=== PATIENT | female | born 1980 | race Hispanic/Latino ===

== ENCOUNTER 2018-06-06 17:47 | Outpatient (CLI) | payer OTHER ==
--- NOTE | 2018-06-06 18:47 | RAD ---
TWO VIEW CHEST: 06/06/18 HISTORY: Shortness of breath. Lung canales are clear. Heart and mediastinum unremarkable. Osseous structures are unremarkable. IMPRESSION: Unremarkable chest. POS: [facility]
[2018-06-06 19:13] LABS: BHCG - Serum Negative (NEGATIVE); Pregs Control Background? CLEAR/WHITE (CLR/WHITE); Pregs Control Bar Appear? YES (CONTROL BAR)
== END 2018-06-06 17:48 | disposition home or self-care (01) ==
LOC: SCSRAD 17:47
PROVIDERS: ATTEND Family Medicine
DX: R06.02 Shortness of breath (principal)
CPT/HCPCS: 71046; 84703

== ENCOUNTER 2018-09-12 10:45 | Day surgery (SDC) | payer OTHER ==
[2018-09-11 08:15] VITALS: BMI 40.2
--- NOTE | 2018-09-12 03:16 | HP ---
HISTORY OF PRESENT ILLNESS: This is a 38-year-old [place] female with difficulty swallowing for the last 3 weeks. Her symptoms were different about 3 weeks ago and it got_ better. Now, she is not having difficulty swallowing anymore. However, . She complains of heartburn, indigestion. She has nausea but no vomiting. The pain is burning in nature. The patient is undergoing EGD because of the abdominal pain, chronic reflux, and dysphagia. ALLERGIES: NONE. SOCIAL HISTORY: The patient does not smoke or drink alcohol. MEDICAL ILLNESSES: 1. Hypertension. 2. Obesity. 3. Migraine. 4. Anxiety. 5. Fatty liver. 6. Gallstone. 7. Ovarian disease. 8. Depression. PHYSICAL EXAMINATION: GENERAL: The patient is obese. VITAL SIGNS: Pulse is 70 and blood pressure 176/70. HEENT: Conjunctivae clear. CARDIOVASCULAR: First and second heart sounds heard. LUNGS: Clear to auscultation. ABDOMEN: Soft. No organomegaly. No tenderness. No masses. ADMITTING DIAGNOSES: Abdominal pain, chronic acid reflux, recent dysphagia. PLAN: EGD. Job ID: [id number] [facility]
--- NOTE | 2018-09-12 16:48 | OP ---
DATE OF PROCEDURE: 09/12/2018 OPERATIVE PROCEDURES: 1. Esophagogastroduodenoscopy with biopsy. 2. Esophageal dilation with a 52-Norwegian Johnston dilator. PREOPERATIVE DIAGNOSES: Abdominal pain and dysphagia. POSTOPERATIVE DIAGNOSES: 1. Normal esophageal mucosa. 2. No esophageal stricture seen. 3. Mild mucosal hyperemia, gastric antrum. 4. Normal duodenum. DESCRIPTION OF PROCEDURE: The patient was placed on the left lateral position and was given sedation by Anesthesia Department. A [employer]ax videogastroscope under direct vision passed down the oropharynx across the GE junction into the stomach and subsequently into the descending duodenum. The vocal cords appeared very healthy. Although, the patient complained of dysphagia. With endoscopy, no esophageal narrowing seen. The mucosa appeared normal. The scope advanced to the stomach without resistance. Retroflexion failed to show any pathology in fundus and cardia. The gastric body, no pathology seen. The gastric antrum as well as the other pyloric channel showed mild hyperemia. The duodenal bulb and descending duodenum, no pathology. The scope was withdrawn back into the stomach. Biopsies obtained in the gastric antrum and gastric body. The stomach decompressed and the scope removed. Because of history of dysphagia, it was elected to do the empiric dilation with a 52-Norwegian Johnston dilator. This was accomplished without any resistance. DISCHARGE PLAN: This is a 38-year-old female with abdominal pain, chronic reflux, and also dysphagia. The EGD showed no esophageal narrowing. The stomach showed no pathology and also duodenum showed no pathology. The patient underwent EGD and biopsy and empiric dilation with a 52-Norwegian Johnston dilator. DISCHARGE RECOMMENDATION: 1. Resume medicines as before. 2. Await gastric biopsy. 3. To come back to clinic in 2 weeks. Job ID: [id number]
--- NOTE | 2018-09-12 20:30 | EKG ---
Test Reason : PREOP Blood Pressure : / mmHG Vent. Rate : 078 BPM Atrial Rate : 078 BPM P-R Int : 154 ms QRS Dur : 090 ms QT Int : 386 ms P-R-T Axes : 055 -13 020 degrees QTc Int : 440 ms Normal sinus rhythm Normal ECG When compared with ECG of 23-JUN-2016 18:15, Nonspecific T wave abnormality no longer evident in Anterior leads Confirmed by IKE IVERSON, . S. (4) on 09/12/2018 8:29:46 PM Referred By: JEFFERY Confirmed By:DR. Griffin RAMIRES MD
== END 2018-09-12 13:07 | disposition home or self-care (01) ==
LOC: SDC 10:45
PROVIDERS: ATTEND Internal Medicine Gastroenterology
PROC: 0D758DZ Dilation of Esophagus with Intraluminal Device, Via Natural or Artificial Opening Endoscopic (ICD-10-PCS; principal; 2018-09-12)
PROC: 0DB68ZX Excision of Stomach, Via Natural or Artificial Opening Endoscopic, Diagnostic (ICD-10-PCS; principal; 2018-09-12)
DX: R13.10 Dysphagia, unspecified (principal); K21.9 Gastro-esophageal reflux disease without esophagitis; R10.9 Unspecified abdominal pain; I10 Essential (primary) hypertension; F41.9 Anxiety disorder, unspecified; F32.9 Major depressive disorder, single episode, unspecified; G43.909 Migraine, unspecified, not intractable, without status migrainosus; K76.0 Fatty (change of) liver, not elsewhere classified; K80.20 Calculus of gallbladder without cholecystitis without obstruction; E66.9 Obesity, unspecified; Z68.41 Body mass index [BMI] 40.0-44.9, adult
CPT/HCPCS: 88305; 88312; 93005; 93010

== ENCOUNTER 2020-08-10 22:59 | Inpatient (IN) | payer MEDICAID, SELFPAY ==
[2020-08-11 10:03] LABS: SARS-CoV-2 NAA Rapid Test Not Detected (NotDetected)
[2020-08-11] MEDS ORDERED: Ketorolac Tromethamine 30 MG/ML VIAL ONE ×3 (13:12→13:55)
[2020-08-11] MEDS ORDERED: Bupivacaine 0.25% HCL 30 ML VIAL ONE (13:37)
[2020-08-11] MEDS ORDERED: Lidocaine 1% w/Epinephrine 1:100K 20 ML VIAL ONE (13:37)
[2020-08-11] MEDS ORDERED: Fentanyl 100 MCG/2 ML VIAL ONE ×2 (13:44→16:07)
[2020-08-11] MEDS ORDERED: Midazolam HCl 2 mg/2 ml Vial ONE (13:44)
[2020-08-11] MEDS ORDERED: PROPOFOL 200 MG/20 ML VIAL ONE (13:55)
[2020-08-11] MEDS ORDERED: Ondansetron PF 4 MG/2 ML Vial ONE (13:55)
[2020-08-11] MEDS ORDERED: Lidocaine 1% PF 5 ML VIAL ONE (13:55)
[2020-08-11] MEDS ORDERED: Dexamethasone 20 MG/5 ML VIAL ONE (13:55)
[2020-08-11] MEDS ORDERED: Rocuronium Bromide 10 MG/ML (10ML VIAL) ONE (13:55)
[2020-08-11] MEDS ORDERED: Glycopyrrolate 0.2 MG/ML 5 ML SYRINGE ONE (13:55)
[2020-08-11] MEDS ORDERED: Iothalamate Meglumine 60% 50 ML VIAL FS ONE (14:35)
[2020-08-11] MEDS ORDERED: Ondansetron HCl/PF 4 MG/2 ML Vial IVP PRN (15:50)
[2020-08-11] MEDS ORDERED: Promethazine HCl 25 MG/ML VIAL SLOW IVP PRN (15:50)
[2020-08-11] MEDS ORDERED: Promethazine HCl 25 MG/ML VIAL IM PRN ×2 (15:50→17:38)
[2020-08-11] MEDS ORDERED: Promethazine HCl 25 MG/ML VIAL ONE (16:22)
[2020-08-11] MEDS ORDERED: Mag-Al 1200 mg/1200 mg/30 ML UDCUP PO PRN (17:38)
[2020-08-11] MEDS ORDERED: hydrALAZINE 20 MG/ML VIAL SLOW IVP PRN (17:38)
[2020-08-11] MEDS ORDERED: Morphine 4 MG/ML VIAL SLOW IVP PRN ×2 (17:38→17:45)
[2020-08-11] MEDS ORDERED: Dextrose 50% Abboject 50 ML SYRINGE SLOW IVP PRN (17:38)
[2020-08-11] MEDS ORDERED: Acetaminophen 325 MG TAB PO PRN (17:38)
[2020-08-11] MEDS ORDERED: HYDROcodone/Acetaminophen 10/325 mg Tablet PO PRN (17:38)
[2020-08-11] MEDS ORDERED: Calcium Carbonate 500 MG ChewTAB PO PRN (17:38)
[2020-08-11] MEDS ORDERED: Dextrose 5% in Water 1,000 ML IV PRN (17:38)
[2020-08-11] MEDS ORDERED: Ondansetron PF 4 MG/2 ML Vial IVP PRN (17:38)
[2020-08-11 20:05] VITALS: BMI 39.1
[2020-08-11] MEDS: Ketorolac Tromethamine 30 MG/ML VIAL IVP SCH (20:20)
[2020-08-11] MEDS: D5 1/2 NS w/20 mEq KCL 1,000 ML IV SCH (20:23)
[2020-08-11] MEDS: Piperacillin/Tazobactam 3.375 GM in Sodium Chloride 0.9% 100 ML IVPB SCH (20:23)
[2020-08-11] MEDS: Famotidine/PF 20 mg/2ml Vial SLOW IVP SCH (20:55)
[2020-08-11] MEDS: Famotidine 20 MG TAB PO SCH (20:56)
[2020-08-12] MEDS: Piperacillin/Tazobactam 3.375 GM in Sodium Chloride 0.9% 100 ML IVPB SCH ×4 (00:18→17:38)
[2020-08-12] MEDS: Ketorolac Tromethamine 30 MG/ML VIAL IVP SCH ×4 (00:19→17:39)
[2020-08-12] MEDS: D5 1/2 NS w/20 mEq KCL 1,000 ML IV SCH ×3 (05:42→18:05)
[2020-08-12 06:24] LABS: #Lymphocytes 0.6 thou/uL (1.20-3.40); #Monocytes 0.3 thou/uL (0.11-0.59); #Neutrophils 5.8 thou/uL (1.40-6.50); %Basophils 0.2 % (0.0-1.0); %Eosinophils 0.1 % (0.0-10.0); %Lymphocytes 9.5 % (21.0-51.0); %Monocytes 4.4 % (0.0-10.0); %Neutrophils 85.8 % (42.0-75.0); Hemoglobin 13.1 g/dL (12.0-16.0); Mean Corpuscular HGB CONC 32.5 g/dL (32.0-36.0); Mean Corpuscular Hemoglobin 31.4 pg (27.0-31.0); Mean Corpuscular Volume 96.7 fL (78.0-98.0); Mean Platelet Volume 8.4 fL (7.4-10.4); Platelet Count 271 thou/uL (130-400); RBC Distribution Width 12.1 % (11.5-14.5); Red Blood Cell (RBC) Count 4.17 mill/uL (4.20-5.40); White Blood Cell (WBC) Count 6.7 thou/uL (4.8-10.8)
[2020-08-12 06:44] LABS: ALT (SGPT) 234 U/L (8-55); AST (SGOT) 226 U/L (5-34); Alkaline Phosphatase 104 U/L (40-110); Anion Gap 12 mmol/L (10-20); BUN (Urea Nitrogen) 9 mg/dL (7.0-18.7); Bilirubin, Total 0.9 mg/dL (0.2-1.2); Calc. Creatinine Clearance 153 mL/min (70-130); Carbon Dioxide 23 mmol/L (22-29); Chloride 105 mmol/L (98-107); Globulin 4.2 g/dL (2.4-3.5); Glucose 126 mg/dL (70-105); Lipase 21 U/L (8-78); Protein, Total 8.2 g/dL (6.0-8.3); Sodium 136 mmol/L (136-145)
[2020-08-12] MEDS: Famotidine 20 MG TAB PO SCH (08:06)
[2020-08-12] MEDS: Famotidine/PF 20 mg/2ml Vial SLOW IVP SCH (08:50)
[2020-08-12] MEDS ORDERED: Piperacillin/Tazobactam 3.375 GM VIAL ONE (10:20)
[2020-08-12] MEDS ORDERED: Sodium Chloride 0.9% 100 ML ONE (10:34)
[2020-08-12] MEDS ORDERED: Indomethacin 50 MG SUPP ONE (12:22)
[2020-08-12] MEDS ORDERED: Iothalamate Meglumine 60% 50 ML VIAL FS ONE (12:23)
[2020-08-12] MEDS ORDERED: Midazolam HCl 2 mg/2 ml Vial ONE (12:38)
[2020-08-12] MEDS ORDERED: Fentanyl 100 MCG/2 ML VIAL ONE ×2 (12:38→14:15)
[2020-08-12] MEDS ORDERED: Ondansetron PF 4 MG/2 ML Vial ONE (12:41)
[2020-08-12] MEDS ORDERED: PROPOFOL 200 MG/20 ML VIAL ONE (12:41)
[2020-08-12] MEDS ORDERED: Rocuronium Bromide 10 MG/ML (10ML VIAL) ONE (12:41)
[2020-08-12] MEDS ORDERED: Dexamethasone 20 MG/5 ML VIAL ONE (12:41)
[2020-08-12] MEDS ORDERED: Succinylcholine 200 MG/10 ml SYRINGE FS ONE (12:41)
[2020-08-12] MEDS ORDERED: Lidocaine 1% PF 5 ML VIAL ONE (12:41)
[2020-08-12] MEDS ORDERED: Morphine Sulfate 2 MG/ML SYRINGE SLOW IVP PRN (13:04)
[2020-08-12] MEDS ORDERED: Meperidine HCl/PF 25 MG/ML VIAL SLOW IVP PRN (13:04)
[2020-08-12] MEDS ORDERED: Promethazine HCl 25 MG/ML VIAL SLOW IVP PRN (13:04)
[2020-08-12] MEDS ORDERED: Promethazine HCl 25 MG/ML VIAL IM PRN (13:04)
[2020-08-12] MEDS ORDERED: Ondansetron HCl/PF 4 MG/2 ML Vial IVP PRN (13:04)
[2020-08-12] MEDS ORDERED: D5 1/2 NS w/20 mEq KCL 1,000 ML ONE (13:32)
[2020-08-12 16:18] VITALS: TEMP 97.7
[2020-08-12 19:29] VITALS: BP 148/100
== END 2020-08-12 20:21 | disposition home or self-care (01) | DRG 419 ==
LOC: ERS 22:59 → ERHOLD 08-11 02:35 → SURG A 08-11 13:42 → OBSVTOIN 08-11 17:38 → T4-A 08-11 19:57
PROVIDERS: ADMIT Specialist; ATTEND Specialist
PROC: 0FT44ZZ Resection of Gallbladder, Percutaneous Endoscopic Approach (ICD-10-PCS; principal; 2020-08-11)
PROC: BF131ZZ Fluoroscopy of Gallbladder and Bile Ducts using Low Osmolar Contrast (ICD-10-PCS; 2020-08-11)
PROC: 0FC98ZZ Extirpation of Matter from Common Bile Duct, Via Natural or Artificial Opening Endoscopic (ICD-10-PCS; 2020-08-12)
DX: K80.62 Calculus of gallbladder and bile duct with acute cholecystitis without obstruction (principal); Z20.822 Contact with and (suspected) exposure to COVID-19; F41.9 Anxiety disorder, unspecified; G43.909 Migraine, unspecified, not intractable, without status migrainosus; I10 Essential (primary) hypertension; E66.9 Obesity, unspecified; Z68.39 Body mass index [BMI] 39.0-39.9, adult; Z79.899 Other long term (current) drug therapy
CPT/HCPCS: 0240U; 36415; 47532; 74330; 76705; 80053; 83690; 85025; 88304; G0378; J0690; J1100; J1610; J1885; J2250; J2270; J2405; J2543; J2550; J2704; J3010; J3480; J3490; Q9961; S0020; S0028

== ENCOUNTER 2023-10-23 13:02 | Emergency (ER) | payer SELFPAY ==
[2023-10-23 13:42] LABS: #Basophils Less than 0.03 10x3/uL (0.0-0.2); %Basophils 0.3 % (0.0-1.0); %Eosinophils 1.2 % (0.0-10.0); %Lymphocytes 26.9 % (21.0-51.0); %Monocytes 6.6 % (0.0-10.0); %Neutrophils 64.7 % (42.0-75.0); Hematocrit 37.6 % (36.0-47.0); Hemoglobin 12.6 g/dL (12.0-16.0); Mean Corpuscular HGB CONC 33.5 g/dL (32.0-36.0); Mean Corpuscular Hemoglobin 31.9 pg (27.0-31.0); Mean Corpuscular Volume 95.2 fL (78.0-98.0); Mean Platelet Volume 10.8 fL (7.4-10.4); Platelet Count 265 10x3/uL (130-400); RBC Distribution Width 13.2 % (11.5-14.5); Red Blood Cell (RBC) Count 3.95 mill/uL (4.20-5.40)
[2023-10-23 14:05] LABS: ALT (SGPT) 19 U/L (8-55); AST (SGOT) 17 U/L (5-34); Albumin 3.5 g/dL (3.5-5.0); Alkaline Phosphatase 53 U/L (40-110); Anion Gap 12 mmol/L (10-20); BUN (Urea Nitrogen) 9 mg/dL (7.0-18.7); Bilirubin, Total 0.6 mg/dL (0.2-1.2); Calc. Creatinine Clearance 0 mL/min (70-130); Calcium 9.2 mg/dL (7.8-10.44); Carbon Dioxide 20 mmol/L (22-29); Chloride 104 mmol/L (98-107); Estimated GFR 115; Globulin 4.2 g/dL (2.4-3.5); Glucose 97 mg/dL (70-105); Potassium 3.4 mmol/L (3.5-5.1); Protein, Total 7.7 g/dL (6.0-8.3); Sodium 133 mmol/L (136-145)
== END 2023-10-23 16:26 | disposition home or self-care (01) ==
LOC: ERS 13:02
DX: O03.9 Complete or unspecified spontaneous abortion without complication (principal); O24.419 Gestational diabetes mellitus in pregnancy, unspecified control; O10.911 Unspecified pre-existing hypertension complicating pregnancy, first trimester; Z3A.01 Less than 8 weeks gestation of pregnancy
CPT/HCPCS: 36415; 76801; 80053; 84702; 85025